=== PATIENT | female | born 1935 | race African-American/Black ===

== ENCOUNTER 2018-10-16 09:19 | Inpatient (IN) ==
[2018-10-16] MEDS ORDERED: Acetaminophen 325 MG Tablet PO ONE (09:47)
[2018-10-16] MEDS ORDERED: Sod Chloride 0.9% Inj 1,000 ML IV.SIG ONE (09:47)
[2018-10-16 10:12] LABS: Baso # (Auto) 0.1 th/mm3 (0.0-0.2); Baso % (Auto) 0.8 % (0.0-2.0); Eos # (Auto) 0.2 th/mm3 (0.0-0.4); Eos % (Auto) 2.5 % (0.0-4.0); Hematocrit 41.7 % (35.0-46.0); Lymph # (Auto) 2.9 th/mm3 (1.0-4.8); Lymph % (Auto) 40.4 % (9.0-44.0); Mean Corpuscular HGB Conc 33.6 % (32.0-36.0); Mean Corpuscular Hemoglobin 30.7 pg (27.0-34.0); Mean Corpuscular Volume 91.3 fL (80.0-100.0); Mean Platelet Volume 7.3 fL (7.0-11.0); Mono # (Auto) 0.5 th/mm3 (0.0-0.9); Mono % (Auto) 6.4 % (0.0-8.0); Neut # (Auto) 3.6 th/mm3 (1.8-7.7); Neut % (Auto) 49.9 % (16.0-70.0); Platelet Count 373 th/mm3 (150-450); Red Blood Count 4.56 mil/mm3 (4.00-5.30); Red Cell Distribution Width 14.3 % (11.6-17.2); White Blood Count 7.2 th/mm3 (4.0-11.0)
[2018-10-16 10:24] LABS: Calcium 8.9 mg/dL (8.5-10.1); Carbon Dioxide 30.8 meq/L (21.0-32.0); Potassium 3.9 meq/L (3.5-5.1)
--- NOTE | 2018-10-16 11:08 | ED ---
HPI General Chief Complaint: Headache Stated Complaint: Headache Time Seen by Provider: 10/16/18 09:39 Source: patient Mode of arrival: ambulatory Limitations: no limitations History of Present Illness HPI Narrative: 83-year-old female complains of headache. It started suddenly about an hour and a half prior to ER arrival in the region of the left neck into the back. Onset was sudden. It was severe and felt like an explosion in the patient's terms. She reports some blurred vision in the right eye ever since. No numbness tingling weakness. No loss of conscious. The patient reports occasional headaches from time to time however nothing like this. Pain has been constant and severe since. Patient denies any change in her normal routine or state of health that she thinks might be related to the headache. Related Data Home Medications Medication Instructions Recorded Confirmed amlodipine 5 mg PO DAILY 10/16/18 10/16/18 aspirin [Aspir-81] 81 mg PO DAILY 10/16/18 10/16/18 buspirone 7.5 mg PO BID 10/16/18 10/16/18 cholestyramine-aspartame 2 g PO BID 10/16/18 10/16/18 [Cholestyramine Light] hydrochlorothiazide 12.5 mg PO DAILY 10/16/18 10/16/18 losartan 50 mg PO DAILY 10/16/18 10/16/18 metformin 250 mg PO BID 10/16/18 10/16/18 omeprazole 20 mg PO DAILY 10/16/18 10/16/18 ranitidine HCl 150 mg PO DAILY 10/16/18 10/16/18 Allergies Allergy/AdvReac Type Severity Reaction Status Date / Time aspirin Allergy Severe UNCOATED Unverified 07/13/17 14:53 enalaprilat Allergy Severe GLOSSAL Unverified 07/13/17 14:53 SWELLING, DYSPNEA Review of Systems ROS: all other systems reviewed are negative Constitutional Denies fever(s) PMFSH Social History Social History Second Hand Smoke Exposure: No Smoking Status: Former smoker Tobacco Type: Cigarettes How Often Do You Have a Drink Containing Alcohol: Never Recent Travel in [facility] within the Last 8 Weeks: No Recent Out of Country Travel within the Last 8 Weeks: No Immunization History Tetanus Immunization: <5 Years Exam Narrative Exam Narrative: GENERAL: 83-year-old female pleasant well-nourished well- developed mild distress secondary to pain speaking full sentences SKIN: Focused skin assessment warm/dry. HEAD: Atraumatic. Normocephalic. EYES: Pupils equal and round. No scleral icterus. No injection or drainage. ENT: No nasal bleeding or discharge. Mucous membranes pink and moist. NECK: Trachea midline. No JVD. Supple. Normal range of motion. CARDIOVASCULAR: Regular rate and rhythm. No murmur appreciated. RESPIRATORY: No accessory muscle use. Clear to auscultation. Breath sounds equal bilaterally. GASTROINTESTINAL: Abdomen soft, non-tender, nondistended. Hepatic and splenic margins not palpable. MUSCULOSKELETAL: No obvious deformities. No clubbing. No cyanosis. No edema. No tenderness along the paracervical musculature. NEUROLOGICAL: Awake and alert. No obvious cranial nerve deficits. Motor grossly within normal limits. Normal speech. PSYCHIATRIC: Appropriate mood and affect; insight and judgment normal. Course Initial Documented Vital Signs Temperature 98.5 F 10/16/18 09:27 Pulse Rate 98 H 10/16/18 09:27 Respiratory Rate 17 10/16/18 09:27 Blood Pressure 178/92 H 10/16/18 09:27 Pulse Oximetry 100 10/16/18 09:27 Last Documented Vital Signs Temperature 98.5 F 10/16/18 09:27 Pulse Rate 87 10/16/18 12:16 Respiratory Rate 17 10/16/18 12:16 Blood Pressure 149/92 H 10/16/18 12:16 Pulse Oximetry 100 10/16/18 12:16 Critical Care Time Critical Care Time: Yes Total Critical Care Time: 40 Attestation: Aggregate critical care time was 40 minutes. Time to perform other separately billable procedures was not included in the critical care time. My time did not include minutes spent treating any other patients simultaneously or on activities that did not directly contribute to the patient's treatment. The services I provided to this patient were to treat and/or prevent clinically significant deterioration that could result in: Permanent deficit, intractable pain, intracranial hemorrhage I provided critical care services requiring my management, as noted below: Chart data review, documentation time, medication orders and management, vital sign assessments/reviewing monitor data, ordering and reviewing lab tests, ordering and interpreting/reviewing x-rays and diagnostic studies, care of the patient and discussion of the patient with the admitting physicians. Medical Decision Making MDM Narrative Medical decision making narrative: Patient arrives with thunderclap headache. Imaging is unremarkable including CTA. It seems as though the left MCA might have been acutely occluded based on interpretation of the head CT. The CTA shows patent intracranial vasculature in the neck vasculature is patent as well. Patient was evaluated by on-call neurologist and no TPA is indicated. There is of note no neurologic deficit. Evidently patient had some motor sensory disturbance in the left side yesterday. Admission for MR protocol evaluation recommended by neurology. Case discussed with Dr. Robledo for the hospitalist service. The patient at the time of my reassessment about 1.5 hours following admission had significant improvement with cephalgia having received Compazine Benadryl and Tylenol. Medical Screen Exam Complete: Yes Emergency Medical Condition: Yes Differential Diagnosis Differential Diagnosis: Aneurysm, subarachnoid hemorrhage, stroke, TIA, venous occlusion Lab Data Lab results reviewed: Yes I reviewed the patient's lab results. Result diagrams: 10/16/18 10:00 10/16/18 10:00 Lab Results 10/16/18 10/16/18 10/16/18 Range/Units 10:00 10:00 12:20 WBC 7.2 (4.0-11.0) th/mm3 RBC 4.56 (4.00-5.30) mil/mm3 Hgb 14.0 (11.6-15.3) gm/dL Hct 41.7 (35.0-46.0) % MCV 91.3 (80.0-100.0) fL MCH 30.7 (27.0-34.0) pg MCHC 33.6 (32.0-36.0) % RDW 14.3 (11.6-17.2) % Plt Count 373 (150-450) th/mm3 MPV 7.3 (7.0-11.0) fL Neut % (Auto) 49.9 (16.0-70.0) % Lymph % (Auto) 40.4 (9.0-44.0) % [place] % (Auto) 6.4 (0.0-8.0) % Eos % (Auto) 2.5 (0.0-4.0) % Baso % (Auto) 0.8 (0.0-2.0) % Neut # (Auto) 3.6 (1.8-7.7) th/mm3 Lymph # (Auto) 2.9 (1.0-4.8) th/mm3 [place] # (Auto) 0.5 (0.0-0.9) th/mm3 Eos # (Auto) 0.2 (0.0-0.4) th/mm3 Baso # (Auto) 0.1 (0.0-0.2) th/mm3 WBC Differential . Differential Comment Auto diff final Sodium 140 (136-145) meq/L Potassium 3.9 (3.5-5.1) meq/L Chloride 102 (98-107) meq/L Carbon Dioxide 30.8 (21.0-32.0) meq/L Anion Gap 7 (5-15) meq/L BUN 10 (7-18) mg/dL Creatinine 0.90 (0.50-1.00) mg/dL Estimated GFR 72 L (>89) mL/min Random Glucose 102 (74-106) mg/dL Calcium 8.9 (8.5-10.1) mg/dL Urine Color Yellow (Yellw/Straw) Urine Clarity Hazy H (Clear) Urine pH 8.0 (5.0-8.5) Ur Specific [place] 1.009 (1.002-1.035) Urine Protein Negative (Neg-Trace) mg/dL Urine Glucose (UA) Negative (Negative) mg/dL Urine Ketones Negative (Negative) mg/dL Urine Occult Blood Small H (Negative) Urine Nitrate Negative (Negative) Urine Bilirubin Negative (Negative) Urine Urobilinogen Less than 2 (Less than 2) mg/dL Ur Leukocyte Esterase Negative (Negative) Urine RBC 1 (0-3) /hpf Ur Squamous Epith Cells 1 (0-5) /hpf Amorphous Sediment Rare H (None) /hpf Urine Bacteria Rare H (None) /hpf Hyaline Casts 1 (0-3) /lpf Urine Mucus Few H (Occasional) /lpf Micro UA Comment Culture not ind Ur Microscopic Review Not Reportable Urine Culture Comments Culture not ind Imaging Data Attestation: I personally reviewed and interpreted this imaging study as follows : (No bleed, density in the left MCA of indeterminate significance) Radiologist's impression: Neck CTA 10/16/18 00:00 CONCLUSION: 1. Negative CTA Carotid. The right internal carotid artery and to a lesser extent the left internal carotid artery demonstrate a retropharyngeal course. Head CT 10/16/18 09:47 CONCLUSION: 1. Concern for acute thrombus identified within the left middle cerebral artery. . Head CTA 10/16/18 09:47 CONCLUSION: 1. No significant stenosis, occlusion or aneurysm. 2. Patent right posterior communicating artery. . Discharge Plan Discharge Disposition Patient Disposition: 30 Still Patient Physicians Team ED Provider: Maurilio Baez Primary Care Provider: Adama Stauffer Attending Provider: Cortney Robledo Other Providers: Mariano Collado ; Broderick Parmar Discharge Interventions Interventions: Vital Signs Last Done: 10/16/18 12:16 Status ED Status: Admitted Patient
--- NOTE | 2018-10-16 11:52 | CT ---
EXAM DATE: 10/16/2018 11:48 AM EST AGE/SEX: 83 years / Female INDICATIONS: Headache and blurred vision CLINICAL DATA: This is the patient's initial encounter. Patient reports that signs and symptoms have been present for 1 day and indicates a pain score of 10/10. MEDICAL/SURGICAL HISTORY: None. None. RADIATION DOSE: 36.84 CTDI (mGy) COMPARISON: [facility], CT BRAIN W AND W/O CONTRAST, 08/22/2015. . TECHNIQUE: CT of the head without contrast. Using automated exposure control and adjustment of the mA and/or kV according to patient size, radiation dose was kept as low as reasonably achievable to ob tain optimal diagnostic quality images. DICOM format image data is available electronically for revi ew and comparison. FINDINGS: Cerebrum: There is asymmetric enlargement and hyperdensity identified within the left middle cerebra l artery concerning for acute thrombus. There is slight loss of portillo-white differentiation identified within the insular cortex. The remainder of the cerebrum is unremarkable. Posterior Fossa: The cerebellum and brainstem are intact. The 4th ventricle is midline. The cerebe llopontine angle is unremarkable. Extracranial: The visualized portion of the orbits is intact. Skull: The calvaria is intact. No evidence of skull fracture. CONCLUSION: 1. Concern for acute thrombus identified within the left middle cerebral artery. . Electronically signed by: Claire Jackson MD 10/16/2018 11:51 AM EST
--- NOTE | 2018-10-16 12:27 | CT ---
EXAM DATE: 10/16/2018 12:23 PM EST AGE/SEX: 83 years / Female INDICATIONS: Headache and blurred vision CLINICAL DATA: This is the patient's initial encounter. Patient reports that signs and symptoms have been present for 1 day and indicates a pain score of 10/10. MEDICAL/SURGICAL HISTORY: None. None. RADIATION DOSE: 27.70 CTDI (mGy) COMPARISON: [facility], CT HEAD W/O CONTRAST, 10/16/2018. [facility], CT BRAIN W AND W/O CONTRAST, 08/22/2015 . . TECHNIQUE: Volumetric scanning was performed using a multi-row detector CT scanner during bolus infu sakshi of 74ML ml Omnipaque 350 (iohexol) nonionic water-soluble contrast as a cumulative dose for mul tiple exams. The data was post processed with a variety of visualization algorithms including full volume maximum intensity projection, multi-planar sliding thin slab reformation, curved planar reform ation, and surface rendering techniques. Using automated exposure control and adjustment of the mA a nd/or kV according to patient size, radiation dose was kept as low as reasonably achievable to obtain optimal diagnostic quality images. DICOM format image data is available electronically for review a nd comparison. FINDINGS: There is excellent visualization of the major intracranial arteries out to the second-order branch ve ssels. There is no evidence for aneurysm, vessel truncation or stenosis, and no evidence for vascula r malformation. There is a patent right posterior communicating artery. CONCLUSION: 1. No significant stenosis, occlusion or aneurysm. 2. Patent right posterior communicating artery. . Electronically signed by: Seun Stewart MD 10/16/2018 12:26 PM EST
--- NOTE | 2018-10-16 12:33 | CT ---
EXAM DATE: 10/16/2018 12:23 PM EST AGE/SEX: 83 years / Female INDICATIONS: Headache with blurred vision CLINICAL DATA: This is the patient's initial encounter. Patient reports that signs and symptoms have been present for 1 day and indicates a pain score of 10/10. MEDICAL/SURGICAL HISTORY: None. None. RADIATION DOSE: 27.70 CTDI (mGy) ; Combined studies COMPARISON: No prior exams available for comparison. TECHNIQUE: Volumetric scanning was performed using a multirow detector CT scanner during bolus infus ion of 74ML ml Omnipaque 350 (iohexol) nonionic water-soluble contrast as a cumulative dose for mult iple exams. The data was postprocessed with a variety of visualization algorithms including full-vo lume maximum intensity projection, multiplanar sliding thin-slab reformation, curved-planar reformati on, and surface-rendering techniques. Using automated exposure control and adjustment of the mA and/ or kV according to patient size, radiation dose was kept as low as reasonably achievable to obtain op timal diagnostic quality images. DICOM format image data is available electronically for review and comparison. FINDINGS: Aortic Arch: There is a three-vessel origin of the great vessels from the aorta. No evidence of ost ial narrowing Right Carotid: The common carotid artery is intact. The carotid bulb has a normal configuration wit hout ulceration or narrowing. The internal carotid artery lumen is smooth without stenosis. The ext ernal carotid artery is intact. Left Carotid: The common carotid artery is intact. The carotid bulb has a normal configuration with out ulceration or narrowing. The internal carotid artery lumen is smooth without stenosis. The exte rnal carotid artery is intact. Vertebrals: The vertebral arteries have a symmetric diameter. No stenotic lesions are seen. Percent stenosis is calculated using the diameter of the stenotic region over the diameter of the nor mal distal internal carotid artery. CONCLUSION: 1. Negative CTA Carotid. The right internal carotid artery and to a lesser extent the left internal carotid artery demonstrate a retropharyngeal course. Electronically signed by: Claire Jackson MD 10/16/2018 12:31 PM EST
[2018-10-16 12:35] LABS: Amorphous Sediment,Urine Rare /hpf; Bacteria,Urine Rare /hpf; Bilirubin,Urine Negative (Negative); Clarity,Urine Hazy (Clear); Color,Urine Yellow (Yellw/Straw); Glucose,Urine (UA) Negative (Negative); Hyaline Casts,Urine 1 /lpf (0-3); Leukocyte Esterase,Urine Negative (Negative); Mucus,Urine Few /lpf (Occasional); Nitrite,Urine Negative (Negative); Specific Gravity,Urine 1.009 (1.002-1.035); Squamous Epithelial Cell,Urine 1 /hpf (0-5)
[2018-10-16] MEDS ORDERED: Dextrose 50% in Water 50 ML Vial IV.PUSH PRN (13:12)
--- NOTE | 2018-10-16 13:12 | P.CONNEU ---
History of Present Illness Service: Neurology Primary Care Provider: Adama Stauffer MD Chief Complaint: stroke alert History of Present Illness: 83 y/o aaf presents to ER for severe headache. began abruptly this am. affected her left neck as well. no loc, no syncope. no photo/phonophobia. since that time she has felt a numbness in her left arm which has improved and only affecting her fingers now. she did have changes in her gait yesterday that are new and felt weak. she rested yesterday hoping the symptoms would improve. 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 no hx of stroke/tia. Review of Systems All other systems reviewed negative except as stated in HPI PMFSH - History History Provided By: Patient - Tobacco History Second Hand Smoke Exposure: No Tobacco Use In Past 30 Days: No Smoking Status: Former smoker Tobacco Type: Cigarettes - Alcohol History How Often Do You Have a Drink Containing Alcohol: Never - Travel History Recent Travel in the [facility] Within the Last 8 Weeks: No Recent Travel Out of the Country Within the Last 8 Weeks: No - Immunization History Tetanus Immunization: <5 Years Medications and Allergies Active Medications: Active Medications Sodium Chloride (Ns Flush) 2 ml IV.FLUSH PRN PRN PRN Reason: FLUSH AFTER USING IV ACCESS Allergies Allergy/AdvReac Type Severity Reaction Status Date / Time aspirin Allergy Severe UNCOATED Unverified 07/13/17 14:53 enalaprilat Allergy Severe GLOSSAL Unverified 07/13/17 14:53 SWELLING, DYSPNEA Exam Vital signs: Vital Signs 10/16/18 09:27 10/16/18 12:16 Temperature 98.5 F Pulse Rate 98 H 87 Respiratory Rate 17 17 Blood Pressure 178/92 H 149/92 H Pulse Oximetry 100 100 Intake & Output 10/15/18 10/16/18 10/16/18 18:59 06:59 18:59 Intake Total 1000 / 1000 Balance 1000 / 1000 Weight 108.862 kg Intake: IV 1000 / 1000 NS Inj 1,000 ML @ Wide Open IV. 1000 / 1000 SIG BOLUS ONE Rx#:[id number] Narrative: GENERAL: in NAD, SKIN: Warm and dry. HEAD: Atraumatic. Normocephalic. EYES: Pupils equal and round. No scleral icterus. ENT: No nasal bleeding or discharge. Mucous membranes pink and moist. NECK: Trachea midline. No JVD. CARDIOVASCULAR: Regular rate and rhythm. RESPIRATORY: No accessory muscle use. GASTROINTESTINAL: Abdomen soft, non-tender, nondistended. MUSCULOSKELETAL: Extremities without clubbing, cyanosis, or edema. No obvious deformities. NEUROLOGICAL: Awake and alert. No aphasia, fluent articulate, ox 3, articulate, follows, +tenderness in rt > left protestant region, No facial asymmetry, OU 3-2mm , eomi, VFF, No drift, Motor grossly within normal limits. Five out of 5 muscle strength in the arms and legs. reduced pin in left fingers, no neglect, Tone normal in all 4 limbs, , msr 1-2+ sym, no clonus, planterflexor, gait not assessed 2/2 fall risk PSYCHIATRIC: Appropriate mood and affect; insight and judgment normal. - Constitutional no acute distress - Routine HEENT Exam Head: Present: normocephalic Eye: Present: EOMI Results - Labs CBC & Chem 7: 10/16/18 10:00 10/16/18 10:00 Labs: Laboratory Results - last 24 hr 10/16/18 10/16/18 10/16/18 10:00 10:00 12:20 WBC 7.2 RBC 4.56 Hgb 14.0 Hct 41.7 MCV 91.3 MCH 30.7 MCHC 33.6 RDW 14.3 Plt Count 373 MPV 7.3 Neut % (Auto) 49.9 Lymph % (Auto) 40.4 [place] % (Auto) 6.4 Eos % (Auto) 2.5 Baso % (Auto) 0.8 Neut # (Auto) 3.6 Lymph # (Auto) 2.9 [place] # (Auto) 0.5 Eos # (Auto) 0.2 Baso # (Auto) 0.1 WBC Differential . Differential Comment Auto diff final Sodium 140 Potassium 3.9 Chloride 102 Carbon Dioxide 30.8 Anion Gap 7 BUN 10 Creatinine 0.90 Estimated GFR 72 L Random Glucose 102 Calcium 8.9 Urine Color Yellow Urine Clarity Hazy H Urine pH 8.0 Ur Specific [place] 1.009 Urine Protein Negative Urine Glucose (UA) Negative Urine Ketones Negative Urine Occult Blood Small H Urine Nitrate Negative Urine Bilirubin Negative Urine Urobilinogen Less than 2 Ur Leukocyte Esterase Negative Urine RBC 1 Ur Squamous Epith Cells 1 Amorphous Sediment Rare H Urine Bacteria Rare H Hyaline Casts 1 Urine Mucus Few H Micro UA Comment Culture not ind Ur Microscopic Review Not Reportable Urine Culture Comments Culture not ind - Imaging Impressions Neck CTA 10/16/18 00:00 CONCLUSION: 1. Negative CTA Carotid. The right internal carotid artery and to a lesser extent the left internal carotid artery demonstrate a retropharyngeal course. Head CT 10/16/18 09:47 CONCLUSION: 1. Concern for acute thrombus identified within the left middle cerebral artery. . Head CTA 10/16/18 09:47 CONCLUSION: 1. No significant stenosis, occlusion or aneurysm. 2. Patent right posterior communicating artery. . 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 cta's negative r/o gca- check esr/crp possible lower medullary brainstem stroke that could cause a severe headache, scalp paresthesias, with ipsilateral numbness recs mri/mra brain esr/crp plavix iv steroids for now echo lipids/hba1c follow exam
[2018-10-16] MEDS: Heparin - SQ 10,000 UNITS/ML Vial SQ SCH ×2 (13:27→21:15)
[2018-10-16] MEDS: Sod Chloride 0.9% Inj 1,000 ML IV.CONT SCH (13:28)
[2018-10-16] MEDS: MethylPREDNISolone Sod Succinate Inj 125 MG/2 ML Vial IV.PUSH SCH ×2 (13:28→21:15)
--- NOTE | 2018-10-16 14:25 | P.HPIM ---
History of Present Illness Primary Care Physician: Adama Stauffer MD Chief Complaint: Headache History of Present Illness: 83-year-old female with a history of diabetes mellitus type 2, hypertension, hyperlipidemia who stented to the emergency room due to sudden onset of severe left-sided headache radiating down towards the posterior part of her head neck and down to her left arm. This is associated with some blurred vision with no associated photo sensitivity. 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 Of note, she started having some generalized weakness yesterday with associated dizziness that affected her gait. When she developed sudden onset of headache, she came into the emergency room further evaluation. She denies a history of stroke or TIAs in the past. She denies any associated trouble swallowing or any difficulty with her speech. She denies any associated chest pain, palpitations, nor any shortness of breath. Diagnosis (1) Acute lacunar stroke: (2) HTN (hypertension): (3) Headache: Inpatient Certification Inpatient Certification: I certify that the inpatient services were ordered in accordance with Medicare regulations governing the order. This includes certification that hospital inpatient services are reasonable and necessary and in the case of services not specified as inpatient-only under 42 CFR 419.22(n), that they are appropriately provided as inpatient services in accordance to with the 2-midnight benchmark under 43 CFR 412.3(e) Estimated Total Length of Stay (Days): 2 Plans for Post Hospital Care: Home Review of Systems Review of Systems: all other systems reviewed are negative [facility] Medical History Medical History Diabetes mellitus (Chronic) Hyperlipidemia (Chronic) Hypertension (Chronic) Lung cancer (Inactive) Renal cancer (Inactive) Surgical History Surgical History History of hysterectomy (Acute) Status post pneumonectomy (Acute) Family History Family History Mother Hypertension Sister Breast cancer Social History Social History Second Hand Smoke Exposure: No Smoking Status: Former smoker Tobacco Type: Cigarettes How Often Do You Have a Drink Containing Alcohol: Never Recent Travel in [place] within the Last 8 Weeks: No Recent Out of Country Travel within the Last 8 Weeks: No Immunization History Tetanus Immunization: <5 Years Medications and Allergies Allergies Allergy/AdvReac Type Severity Reaction Status Date / Time aspirin Allergy Severe UNCOATED Unverified 07/13/17 14:53 enalaprilat Allergy Severe GLOSSAL Unverified 07/13/17 14:53 SWELLING, DYSPNEA Home Medications Medication Instructions Recorded Confirmed Type amlodipine 5 mg PO DAILY 10/16/18 10/16/18 History aspirin [Aspir-81] 81 mg PO DAILY 10/16/18 10/16/18 History buspirone 7.5 mg PO BID 10/16/18 10/16/18 History cholestyramine-aspartame 2 g PO BID 10/16/18 10/16/18 History [Cholestyramine Light] hydrochlorothiazide 12.5 mg PO DAILY 10/16/18 10/16/18 History losartan 50 mg PO DAILY 10/16/18 10/16/18 History metformin 250 mg PO BID 10/16/18 10/16/18 History omeprazole 20 mg PO DAILY 10/16/18 10/16/18 History ranitidine HCl 150 mg PO DAILY 10/16/18 10/16/18 History Active Medications: Active Medications Clopidogrel Bisulfate (Plavix) 75 mg PO DAILY [facility] Last Admin: 10/16/18 13:28 Dose: 75 mg Dextrose (D50w Vial) 50 ml IV.PUSH UNSCH PRN PRN Reason: PER HYPOGLYCEMIA PROTOCOL Glucagon (Glucagon Inj) 1 mg OTHER UNSCH PRN PRN Reason: for Hypoglycemia Protocol Heparin Sodium (Porcine) (Heparin Inj) 5,000 units SQ Q12HR [facility] Last Admin: 10/16/18 13:27 Dose: 5,000 units Sodium Chloride (Ns Inj) 1,000 mls @ 70 mls/hr IV.CONT .[id number] [facility] Last Admin: 10/16/18 13:28 Dose: 70 mls/hr Insulin Aspart (Novolog Insulin Correctional Sugar Inj) 0 unit SQ ACHS [facility]; Protocol Methylprednisolone Sodium Succinate (Solumedrol Inj) 125 mg IV.PUSH Q12HR [facility] Stop: 10/18/18 23:59 Last Admin: 10/16/18 13:28 Dose: 125 mg Pravastatin Sodium (Pravachol) 40 mg PO HS [facility] Sodium Chloride (Ns Flush) 2 ml IV.FLUSH PRN PRN PRN Reason: FLUSH AFTER USING IV ACCESS Sodium Chloride (Ns Flush) 2 ml IV.FLUSH BID [facility] Sodium Chloride (Ns Flush) 2 ml IV.FLUSH PRN PRN PRN Reason: FLUSH AFTER USING IV ACCESS Physical Exam Vital signs: Last Vital Signs Temp 98.5 F 10/16/18 09:27 Pulse 87 10/16/18 12:16 Resp 17 10/16/18 12:16 BP 149/92 H 10/16/18 12:16 Pulse Ox 100 10/16/18 12:16 Intake & Output 10/14/18 10/15/18 10/16/18 10/17/18 06:59 06:59 06:59 06:59 Intake Total 1000 / 1000 Balance 1000 / 1000 Weight 108.862 kg Narrative: GENERAL: Well-nourished well-developed -F[place]ish female in no acute distress SKIN: Warm and dry. HEAD: Atraumatic. Normocephalic. EYES: Pupils equal and round. No scleral icterus. No injection or drainage. ENT: No nasal bleeding or discharge. Mucous membranes pink and moist. NECK: Trachea midline. No JVD. CARDIOVASCULAR: Regular rate and rhythm. RESPIRATORY: No accessory muscle use. Clear to auscultation. Breath sounds equal bilaterally. GASTROINTESTINAL: Abdomen soft, non-tender, nondistended. Hepatic and splenic margins not palpable. Normoactive bowel sounds MUSCULOSKELETAL: Extremities without clubbing, cyanosis, or edema. No obvious deformities. NEUROLOGICAL: Awake and alert to person place time situation. No obvious cranial nerve deficits. Motor grossly within normal limits. Five out of 5 muscle strength in the legs. 5 out of 5 motor strength in the right upper extremitiesslight diminished zoology teacher strength of the left fingers and hand normal speech. PSYCHIATRIC: Appropriate mood and affect; insight and judgment normal. Results Labs CBC & Chem 7: 10/16/18 10:00 10/16/18 10:00 Imaging Impressions Neck CTA 10/16/18 00:00 CONCLUSION: 1. Negative CTA Carotid. The right internal carotid artery and to a lesser extent the left internal carotid artery demonstrate a retropharyngeal course. Head CT 10/16/18 09:47 CONCLUSION: 1. Concern for acute thrombus identified within the left middle cerebral artery. . Head CTA 10/16/18 09:47 CONCLUSION: 1. No significant stenosis, occlusion or aneurysm. 2. Patent right posterior communicating artery. . Caprini VTE Risk Assessment Caprini VTE Risk Assessment: Moderate/High Risk (score >= 2) Caprini Risk Assessment Model: Point Value = 1 Point Value = 2 Point Value = 3 Point Value = 5 Age 41-60 Minor surgery BMI > 25 kg/m2 Swollen legs Varicose veins or History of unexplained or recurrent spontaneous Oral contraceptives or hormone replacement Sepsis (< 1 month) Serious lung disease, including pneumonia (< 1 month) Abnormal pulmonary function Acute myocardial infarction Congestive heart failure (< 1 month) History of inflammatory bowel disease Medical patient at bed rest Age 61-74 Arthroscopic surgery Major open surgery (> 45 min) Laparoscopic surgery (> 45 min) Malignancy Confined to bed (> 72 hours) Immobilizing plaster cast Central venous access Age >= 75 History of VTE Family history of VTE Factor V Leiden Prothrombin 52801L Lupus anticoagulant Anticardiolipin antibodies Elevated serum homocysteine Heparin-induced thrombocytopenia Other congenital or acquired thrombophilia Stroke (< 1 month) Elective arthroplasty Hip, pelvis, or leg fracture Acute spinal cord injury (< 1 month) Prophylaxis Regimen: Total Risk Factor Score Risk Level Prophylaxis Regimen 0-1 Low Early ambulation 2 Moderate Order ONE of the following: *Sequential Compression Device (SCD) *Heparin 5000 units SQ BID 3-4 Higher Order ONE of the following medications: *Heparin 5000 units SQ TID *Enoxaparin/Lovenox 40 mg SQ daily (WT < 150 kg, CrCl > 30 mL/min) *Enoxaparin/Lovenox 30 mg SQ daily (WT < 150 kg, CrCl > 10-29 mL/min) *Enoxaparin/Lovenox 30 mg SQ BID (WT < 150 kg, CrCl > 30 mL/min) AND/OR *Sequential Compression Device (SCD) 5 or more Highest Order ONE of the following medications: *Heparin 5000 units SQ TID (Preferred with Epidurals) *Enoxaparin/Lovenox 40 mg SQ daily (WT < 150 kg, CrCl > 30 mL/min) *Enoxaparin/Lovenox 30 mg SQ daily (WT < 150 kg, CrCl > 10-29 mL/min) *Enoxaparin/Lovenox 30 mg SQ BID (WT < 150 kg, CrCl > 30 mL/min) AND *Sequential Compression Device (SCD) Assessment and Plan (1) Acute lacunar stroke: Code(s): I63.9 - Cerebral infarction, unspecified Status: Acute (2) HTN (hypertension): Code(s): I10 - Essential (primary) hypertension Status: Chronic (3) Headache: Code(s): R51 - Headache Status: Acute Plan 83-year-old female presents to the emergency room acute onset of headache with left arm numbness and decreased handgrip with associated blurry vision CVA versus TIA versus cephalgiaPlavix have been initiated by neurology. Patient in the past has not tolerated aspirin due to spitting up blood. MRI and MRA of the brain currently pending. 2D echo to be obtained Appreciate neurology recommendation and temporal arteritis needs to be ruled out , ERCP CRP currently pending, IV steroids was initiated by neurology. Continue close neurological checks Consult OT and PT Diabetes mellitus type 2 -ADA diet, sliding scale insulin, hold metformin Hypertension history, hold antihypertensives for permissive blood pressure until CVA is ruled out. Hyperlipidemia -check fasting lipid profile and start statin. DVT prophylaxisheparin _ (1) Headache Qualifiers: Headache chronicity pattern: Headache type: Intractability: (2) HTN (hypertension) Qualifiers: Hypertension type:
[2018-10-16 14:26] LABS: Chol/HDL Ratio 2.53 Ratio; HDL Cholesterol 64.4 mg/dL (40.0-60.0); Thyroid Stimulating Hormone 1.25 uIU/mL (0.358-3.740)
--- NOTE | 2018-10-16 16:18 | MR ---
EXAM DATE: 10/16/2018 4:13 PM EST AGE/SEX: 83 years / Female INDICATIONS: Cephalgia. Left side weakness. CLINICAL DATA: This is the patient's initial encounter. Patient reports that signs and symptoms have been present for 1 day and indicates a pain score of 0/10. MEDICAL/SURGICAL HISTORY: Carcinoma, lung. Diabetes mellitus type II. Hypertension. Hysterect marisol. Lobectomy. Nephrectomy, right. Bilateral knee replacement. COMPARISON: [facility] [place], MR HEAD W/O CONTRAST, 10/16/2018. [facility] [place], CT HEAD W/O CONTRAST, 10/16/2018. [facility] [place] , CTA HEAD W CONTRAST W 3D, 10/16/2018. . TECHNIQUE: 3D [id number] MRA was performed. Source images, multiplanar STS MIP, and 3D volum e MIP reconstructions were reviewed. FINDINGS: There is excellent visualization of the major intracranial arteries out to the second-order branch ve ssels. There is no evidence for aneurysm, vessel truncation or stenosis, and no evidence for vascula r malformation. Flow is seen in the right PCOM. CONCLUSION: 1. Negative MRA of the [place]. The left M1 segment is widely patent with intact flow. Electronically signed by: Carter Gerber MD 10/16/2018 4:17 PM EST
[2018-10-16] MEDS ORDERED: Gadobutrol PF 10 MMOL/10 ML Vial (for RAD) IV.SIG ONE (16:20)
--- NOTE | 2018-10-16 16:20 | MR ---
EXAM DATE: 10/16/2018 4:16 PM EST AGE/SEX: 83 years / Female INDICATIONS: Cephalgia. Left side weakness. CLINICAL DATA: This is the patient's initial encounter. Patient reports that signs and symptoms have been present for 1 day and indicates a pain score of 0/10. MEDICAL/SURGICAL HISTORY: Carcinoma, lung. Diabetes mellitus type II. Hypertension. Hysterect marisol. Lobectomy. Nephrectomy, right. Bilateral knee replacement. COMPARISON: [facility] [place], MRA HEAD W/O CONTRAST, 10/16/2018. [facility] [place], CTA HEAD W CONTRAST W 3D, 10/16/2018. . TECHNIQUE: Multiplanar, multisequence examination of the brain was performed without contrast. FINDINGS: Cerebrum: The ventricles are normal for age. No evidence of midline shift, mass lesion, hemorrhage or acute infarction. No extraaxial fluid collections are seen. The pituitary gland and suprasellar cistern are normal in configuration. Scattered old tiny lacunar infarcts are noted within the bilater al basal ganglia. White Matter: No significant signal abnormalities are seen in the white matter. Posterior Fossa: The cerebellum is intact. Old lacunar infarct is noted within the left mirza. The 4th ventricle is midline. The cerebellopontine angle is unremarkable. The cerebellar tonsils are vidya l in position. Diffusion Imaging: No focal areas of restricted diffusion are seen. No evidence of acute infarction . Extracranial: The visualized portions of the orbits and paranasal sinuses are unremarkable. CONCLUSION: 1. No acute infarct, acute hemorrhage, midline shift or extra-axial fluid collections. 2. Scattered old tiny lacunar infarcts within the bilateral basal ganglia and within the left mirza Electronically signed by: Seun Stewart MD 10/16/2018 4:19 PM EST
--- NOTE | 2018-10-16 16:56 | MR ---
EXAM DATE: 10/16/2018 4:46 PM EST AGE/SEX: 83 years / Female INDICATIONS: Myelopathy. Left side weakness. CLINICAL DATA: This is the patient's initial encounter. Patient reports that signs and symptoms have been present for 1 day and indicates a pain score of 0/10. MEDICAL/SURGICAL HISTORY: Carcinoma, lung. Hypertension. Diabetes mellitus type II. Nephrecto my, right. Lobectomy. Hysterectomy. Bilateral knee replacement. COMPARISON: [facility], CTA NECK W CONTRAST W 3D, 10/16/2018. . TECHNIQUE: Multiplanar, multisequence MRI examination of the cervical spine was performed without an d with 10cc ml Gadavist (gadobutrol) contrast as a single exam dose. FINDINGS: Vertebrae: Normal vertebral body height. Homogeneous marrow signal. Alignment: Normal. Cord: Normal configuration and signal. Post Fossa: The cerebellar tonsils are normal in position. Post Contrast: No abnormal areas of enhancement are seen in the cervical cord or paraspinal soft tis sues. The right carotid artery courses to the midline at the level of C4 and C5. C2-C3: The thecal sac has a normal configuration. There is no evidence of disc herniation or spinal canal stenosis. The neural foramina are patent bilaterally. C3-C4: No evidence of disc bulge or protrusion. Asymmetric uncovertebral joint hypertrophy on the le ft side causes some narrowing of the orifice of the neural foramen. The right neural foramen is paten t. C4-C5: The thecal sac has a normal configuration. There is no evidence of disc herniation or spinal canal stenosis. The neural foramina are patent bilaterally. C5-C6: Mild broad-based bulging of the disc flattens the ventral margin of the thecal sac. Neural fo ramen are patent bilaterally. C6-C7: Mild broad-based bulging of the disc. There is an epidural impression on the left side near t he orifice of the neural foramen having appearance characteristic of the disc/osteophyte complex caus ing moderate neural foraminal stenosis. The neural foramen on the right is patent. C7-T1: No epidural impressions seen. CONCLUSION: 1. Uncovertebral joint hypertrophy on the left side at C3-4 and disc osteophyte complex on the left side at C6-7 cause asymmetric narrowing of the neural foramina at these levels. Probable impingement on the ventral nerve roots at both levels. 2. No signal abnormalities in the marrow of the cervical vertebral bodies. Electronically signed by: Carter Gerber MD 10/16/2018 4:55 PM EST
[2018-10-16] MEDS: Insulin NovoLOG Aspart Correctional Sugar Inj SQ SCH ×2 (17:27→21:20)
[2018-10-17] MEDS: Cholestyramine Light 4 GM Packet PO SCH ×3 (03:21→21:27)
[2018-10-17] MEDS: Sod Chloride 0.9% Inj 1,000 ML IV.CONT SCH (06:22)
[2018-10-17] MEDS: Insulin NovoLOG Aspart Correctional Sugar Inj SQ SCH ×4 (07:59→21:30)
[2018-10-17] MEDS: Heparin - SQ 10,000 UNITS/ML Vial SQ SCH ×2 (08:00→21:31)
[2018-10-17] MEDS: Famotidine 20 MG Tablet PO SCH (08:00)
[2018-10-17] MEDS: Pantoprazole Sodium 20 MG DR Tablet PO SCH (08:00)
[2018-10-17] MEDS: MethylPREDNISolone Sod Succinate Inj 125 MG/2 ML Vial IV.PUSH SCH (08:01)
--- NOTE | 2018-10-17 09:53 | P.PNNEU ---
Subjective Subjective Comments: No cp, no dyspnea, no focal weakness, no vision loss Feels a lot better no numbness very mild headache this morning that resolved scalp feels better no paresthesias Active Medications: Active Medications Buspirone HCl (Buspar) 7.5 mg PO BID [facility] Last Admin: 10/17/18 08:00 Dose: 7.5 mg Cholestyramine Resin (Questran Light 4 Gm Pkt) 2 gm PO BID [facility] Last Admin: 10/17/18 08:01 Dose: Not Given Clopidogrel Bisulfate (Plavix) 75 mg PO DAILY [facility] Last Admin: 10/17/18 08:00 Dose: 75 mg Dextrose (D50w Vial) 50 ml IV.PUSH UNSCH PRN PRN Reason: PER HYPOGLYCEMIA PROTOCOL Famotidine (Pepcid) 20 mg PO DAILY [facility] Last Admin: 10/17/18 08:00 Dose: 20 mg Glucagon (Glucagon Inj) 1 mg OTHER UNSCH PRN PRN Reason: for Hypoglycemia Protocol Heparin Sodium (Porcine) (Heparin Inj) 5,000 units SQ Q12HR [facility] Last Admin: 10/17/18 08:00 Dose: 5,000 units Hydrochlorothiazide (Microzide) 12.5 mg PO DAILY [facility] Last Admin: 10/17/18 08:00 Dose: 12.5 mg Sodium Chloride (Ns Inj) 1,000 mls @ 70 mls/hr IV.CONT .[id number] [facility] Last Infusion: 10/17/18 06:22 Dose: 70 mls/hr Insulin Aspart (Novolog Insulin Correctional Sugar Inj) 0 unit SQ ACHS [facility]; Protocol Last Admin: 10/17/18 07:59 Dose: Not Given Methylprednisolone Sodium Succinate (Solumedrol Inj) 125 mg IV.PUSH Q12HR [facility] Stop: 10/18/18 23:59 Last Admin: 10/17/18 08:01 Dose: 125 mg Miscellaneous (Pill Splitter) 1 each OTHER UNSCH PRN PRN Reason: PILL SPLITTER Pantoprazole Sodium (Protonix) 20 mg PO DAILY [facility] Last Admin: 10/17/18 08:00 Dose: 20 mg Pravastatin Sodium (Pravachol) 40 mg PO HS [facility] Last Admin: 10/16/18 21:15 Dose: 40 mg Sodium Chloride (Ns Flush) 2 ml IV.FLUSH PRN PRN PRN Reason: FLUSH AFTER USING IV ACCESS Sodium Chloride (Ns Flush) 2 ml IV.FLUSH BID [facility] Last Admin: 10/17/18 08:00 Dose: Not Given Sodium Chloride (Ns Flush) 2 ml IV.FLUSH PRN PRN PRN Reason: FLUSH AFTER USING IV ACCESS Allergies/Adverse Reactions: Allergies Allergy/AdvReac Type Severity Reaction Status Date / Time aspirin Allergy Severe UNCOATED Unverified 07/13/17 14:53 enalaprilat Allergy Severe GLOSSAL Unverified 07/13/17 14:53 SWELLING, DYSPNEA Review of Systems All other systems reviewed negative except as stated in HPI Physical Exam Vital signs: Vital Signs 10/16/18 12:16 10/16/18 14:31 10/16/18 15:30 Temperature Pulse Rate 87 73 Respiratory Rate 17 18 Blood Pressure 149/92 H 163/93 H Pulse Oximetry 100 100 10/16/18 17:02 10/16/18 19:59 10/16/18 20:00 Temperature 97.5 F L 98.2 F Pulse Rate 80 80 93 H Respiratory Rate 16 18 Blood Pressure 152/92 H 135/82 Pulse Oximetry 99 94 L 10/17/18 00:00 10/17/18 00:07 10/17/18 04:00 Temperature 98.1 F 98.2 F Pulse Rate 87 72 74 Respiratory Rate 18 18 Blood Pressure 132/79 136/78 Pulse Oximetry 95 93 L 10/17/18 05:36 10/17/18 07:00 10/17/18 08:00 Temperature 98.1 F Pulse Rate 74 83 Respiratory Rate 12 20 Blood Pressure 132/79 Pulse Oximetry 97 Intake & Output 10/16/18 10/17/18 10/17/18 18:59 06:59 18:59 Intake Total 1540 / 1540 Balance 1540 / 1540 Weight 108.862 kg Intake: IV 1000 / 1000 NS Inj 1,000 ML @ Wide Open IV. 1000 / 1000 SIG BOLUS ONE Rx#:[id number] Oral 540 / 540 Other: # Voids 1 2 Date of Last Bowel Movement 10/16/18 10/16/18 # Bowel Movements 0 Narrative: GENERAL: in NAD, sitting up in chair looks well SKIN: Warm and dry. HEAD: Atraumatic. Normocephalic. EYES: Pupils equal and round. No scleral icterus. ENT: No nasal bleeding or discharge. NECK: Trachea midline. No JVD. CARDIOVASCULAR: Regular rate and rhythm. RESPIRATORY: No accessory muscle use. GASTROINTESTINAL: Abdomen soft, non-tender, nondistended. MUSCULOSKELETAL: No obvious deformities. NEUROLOGICAL: Awake and alert. No aphasia, fluent articulate, ox 3, articulate, follows, no tenderness neck supple visual rseendiz full no facial asymmetry no focal weakness gait not assessed secondary to fall risk PSYCHIATRIC: Appropriate mood and affect; insight and judgment normal. - Constitutional no acute distress - Routine HEENT Exam Head: Present: normocephalic Eye: Present: EOMI Objective Laboratory Results - last 24 hr 10/16/18 10/16/18 10/16/18 10:00 10:00 10:00 WBC 7.2 RBC 4.56 Hgb 14.0 Hct 41.7 MCV 91.3 MCH 30.7 MCHC 33.6 RDW 14.3 Plt Count 373 MPV 7.3 Neut % (Auto) 49.9 Lymph % (Auto) 40.4 [place] % (Auto) 6.4 Eos % (Auto) 2.5 Baso % (Auto) 0.8 Neut # (Auto) 3.6 Lymph # (Auto) 2.9 [place] # (Auto) 0.5 Eos # (Auto) 0.2 Baso # (Auto) 0.1 WBC Differential . Differential Comment Auto diff final ESR Sodium 140 Potassium 3.9 Chloride 102 Carbon Dioxide 30.8 Anion Gap 7 BUN 10 Creatinine 0.90 Estimated GFR 72 L POC Glucose Random Glucose 102 Calcium 8.9 C-Reactive Protein 1.00 H Triglycerides 133 Cholesterol 163 LDL Cholesterol, Calc 72 HDL Cholesterol 64.4 H Cholesterol/HDL Ratio 2.53 Vitamin B12 869 TSH 1.250 Urine Color Urine Clarity Urine pH Ur Specific [place] Urine Protein Urine Glucose (UA) Urine Ketones Urine Occult Blood Urine Nitrate Urine Bilirubin Urine Urobilinogen Ur Leukocyte Esterase Urine RBC Ur Squamous Epith Cells Amorphous Sediment Urine Bacteria Hyaline Casts Urine Mucus Micro UA Comment Ur Microscopic Review Urine Culture Comments 10/16/18 10/16/18 10/16/18 10:00 10:00 12:20 WBC RBC Hgb Hct MCV MCH MCHC RDW Plt Count MPV Neut % (Auto) Lymph % (Auto) [place] % (Auto) Eos % (Auto) Baso % (Auto) Neut # (Auto) Lymph # (Auto) [place] # (Auto) Eos # (Auto) Baso # (Auto) WBC Differential Differential Comment ESR 8 Sodium Potassium Chloride Carbon Dioxide Anion Gap BUN Creatinine Estimated GFR POC Glucose Random Glucose Calcium C-Reactive Protein Triglycerides Cholesterol LDL Cholesterol, Calc HDL Cholesterol Cholesterol/HDL Ratio Vitamin B12 TSH Cancelled Urine Color Yellow Urine Clarity Hazy H Urine pH 8.0 Ur Specific [place] 1.009 Urine Protein Negative Urine Glucose (UA) Negative Urine Ketones Negative Urine Occult Blood Small H Urine Nitrate Negative Urine Bilirubin Negative Urine Urobilinogen Less than 2 Ur Leukocyte Esterase Negative Urine RBC 1 Ur Squamous Epith Cells 1 Amorphous Sediment Rare H Urine Bacteria Rare H Hyaline Casts 1 Urine Mucus Few H Micro UA Comment Culture not ind Ur Microscopic Review Not Reportable Urine Culture Comments Culture not ind 10/16/18 10/16/18 10/17/18 17:18 20:18 07:10 WBC RBC Hgb Hct MCV MCH MCHC RDW Plt Count MPV Neut % (Auto) Lymph % (Auto) [place] % (Auto) Eos % (Auto) Baso % (Auto) Neut # (Auto) Lymph # (Auto) [place] # (Auto) Eos # (Auto) Baso # (Auto) WBC Differential Differential Comment ESR Sodium Potassium Chloride Carbon Dioxide Anion Gap BUN Creatinine Estimated GFR POC Glucose 114 H 179 H 125 H Random Glucose Calcium C-Reactive Protein Triglycerides Cholesterol LDL Cholesterol, Calc HDL Cholesterol Cholesterol/HDL Ratio Vitamin B12 TSH Urine Color Urine Clarity Urine pH Ur Specific [place] Urine Protein Urine Glucose (UA) Urine Ketones Urine Occult Blood Urine Nitrate Urine Bilirubin Urine Urobilinogen Ur Leukocyte Esterase Urine RBC Ur Squamous Epith Cells Amorphous Sediment Urine Bacteria Hyaline Casts Urine Mucus Micro UA Comment Ur Microscopic Review Urine Culture Comments Review/Management - Diagnosis (1) HTN (hypertension) Code(s): I10 - Essential (primary) hypertension Status: Chronic Current Visit: Yes (2) Headache Code(s): R51 - Headache Status: Acute Current Visit: Yes (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 Possibility of TIA versus mild inflammatory state cta's negative r/o gca- check esr/crp; ESR normal CRP minimally elevated MRI brain negative for acute stroke MRA brain patent vasculature MRI C-spine spondylosis cord normal recs Doing better Possibility of TIA and Plavix; discontinue aspirin 6-12 weeks prednisone times 1 week Discharge planning from neurologic neurology standpoint Behavioral modification and risk factor reduction. Weight loss, blood pressure control, blood sugar control, lipid control. Exercise
--- NOTE | 2018-10-17 11:46 | P.PNIM ---
Subjective Interval history: Reports headache has resolved. Reports no numbness nor any numbness at this time. Feels pretty good. No neck pain. Physical Exam Vital signs: Last Vital Signs Temp 98.1 F 10/17/18 08:00 Pulse 107 H 10/17/18 08:00 Resp 20 10/17/18 08:00 BP 132/79 10/17/18 08:00 Pulse Ox 97 10/17/18 08:00 Intake & Output 10/15/18 10/16/18 10/17/18 10/18/18 06:59 06:59 06:59 06:59 Intake Total 1540 / 1540 Balance 1540 / 1540 Weight 108.862 kg Narrative: GENERAL: This is a well-nourished, well-developed patient, in no apparent distress. CARDIOVASCULAR: Regular rate and rhythm RESPIRATORY: Clear to auscultation. Breath sounds equal bilaterally. No wheezes , rales, or rhonchi. GASTROINTESTINAL: Abdomen soft, non-tender, nondistended. Normal active bowel sounds MUSCULOSKELETAL: Extremities without clubbing, cyanosis, or edema. NEURO: Alert & Oriented x4 to person, place, time, situation. Moves all ext x4 Results Labs CBC & Chem 7: 10/16/18 10:00 10/16/18 10:00 Imaging Imaging: Impressions Head MRI 10/16/18 00:00 CONCLUSION: 1. No acute infarct, acute hemorrhage, midline shift or extra-axial fluid collections. 2. 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 Negative CTA Carotid. The right internal carotid artery and to a lesser extent the left internal carotid artery demonstrate a retropharyngeal course. Head CT 10/16/18 09:47 CONCLUSION: 1. Concern for acute thrombus identified within the left middle cerebral artery. . Head CTA 10/16/18 09:47 CONCLUSION: 1. No significant stenosis, occlusion or aneurysm. 2. Patent right posterior communicating artery. . Head MRA 10/16/18 13:00 CONCLUSION: 1. Negative MRA of the [place]. The left M1 segment is widely patent with intact flow. Cervical Spine MRI 10/16/18 13:12 CONCLUSION: 1. Uncovertebral joint hypertrophy on the left side at C3-4 and disc osteophyte complex on the left side at C6-7 cause asymmetric narrowing of the neural foramina at these levels. Probable impingement on the ventral nerve roots at both levels. 2. No signal abnormalities in the marrow of the cervical vertebral bodies. Assessment and Plan (1) TIA (transient ischemic attack): Code(s): G45.9 - Transient cerebral ischemic attack, unspecified Status: Acute (2) HTN (hypertension): Code(s): I10 - Essential (primary) hypertension Status: Chronic (3) Headache: Code(s): R51 - Headache Status: Acute Plan 83-year-old female presents to the emergency room acute onset of headache with left arm numbness and decreased handgrip with associated blurry vision TIA versus cephalgiaPlavix have been initiated by neurology. Patient in the past has not tolerated full dose aspirin due to spitting up blood but was able to tolerate the baby aspirin.. 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 2D echo results pending Appreciate neurology recommendation and temporal arteritis needs to be ruled out , ESR not elevated at 8 and CRP 1.00, IV steroids was initiated by neurology. Continue close neurological checks which is remained stable Consult OT and PT Diabetes mellitus type 2 -ADA diet, sliding scale insulin, hold metformin, hemoglobin A1c currently pending Hypertension history, hold antihypertensives for permissive blood pressure until CVA is ruled out. Hyperlipidemia -LDL at 72 with good HDL at 64, will discontinue statin DVT prophylaxisheparin Discharge Planning: Likely home in the morning if patient remains stable Progress Note: Quality VTE Deep Vein Thrombosis/Pulmonary Embolism Present on Admission: No _ (1) HTN (hypertension) Qualifiers: Hypertension type: (2) Headache Qualifiers: Headache type: Headache chronicity pattern: Intractability:
[2018-10-17] MEDS: amLODIPine 5 MG Tablet PO SCH (12:16)
--- NOTE | 2018-10-17 13:34 | ECHRPT ---
Indication: afib and flutter CONCLUSIONS Normal left ventricular size. Mild concentric left ventricular hypertrophy. The left ventricular systolic function is normal with an estimated ejection fraction in the range of 55-60%. [id number] mitral valve regurgitation. Moderate tricuspid regurgitation. The estimated pulmonary arterial pressure is 41 mmHg. There is estimated mild pulmonary hypertension present (range 40-50 mmHg). BP: / HR: Rhythm: MEASUREMENTS (Male / Female) Normal Values Technical Quality: 2D ECHO LV Diastolic Diameter PLAX 3.5 cm 4.2 - 5.9 / 3.9 - 5.3 cm LV Systolic Diameter PLAX 2.8 cm IVS Diastolic Thickness 1.4 cm 0.6 - 1.0 / 0.6 - 0.9 cm LVPW Diastolic Thickness 1.3 cm 0.6 - 1.0 / 0.6 - 0.9 cm LV Relative Wall Thickness 0.8 RV Internal Dim ED PLAX 2.4 cm LVOT Diameter 1.7 cm Aortic Root Diameter 2.9 cm LV Ejection Fraction MOD BP 55.7 % >= 55 % LV Ejection Fraction MOD 4C 66.3 % LV Ejection Fraction 4C AL 68.6 % LV Ejection Fraction MOD 2C 52.9 % LV Ejection Fraction 2C AL 53.0 % M-MODE Aortic Root Diameter MM 3.2 cm LA Systolic Diameter MM 4.6 cm LA Ao Ratio MM 1.4 AV Cusp Separation MM 1.8 cm DOPPLER AV Peak Velocity 161.0 cm/s AV Peak Gradient 10.4 mmHg LVOT Peak Velocity 116.0 cm/s LVOT Peak Gradient 5.4 mmHg AV Area Cont Eq pk 1.6 cm Mitral E Point Velocity 88.4 cm/s Mitral A Point Velocity 117.0 cm/s Mitral E to A Ratio 0.8 LV E' Lateral Velocity 9.7 cm/s Mitral E to LV E' Lateral Ratio 9.2 LV E' Septal Velocity 8.6 cm/s Mitral E to LV E' Septal Ratio 10.3 TR Peak Velocity 278.0 cm/s TR Peak Gradient 30.9 mmHg Right Atrial Pressure 10.0 mmHg Pulmonary Artery Systolic Pressu 40.9 mmHg Right Ventricular Systolic Press 40.9 mmHg PV Peak Velocity 97.7 cm/s PV Peak Gradient 3.8 mmHg FINDINGS LEFT VENTRICLE Normal left ventricular size. Mild concentric left ventricular hypertrophy. The left ventricular systolic function is normal with an estimated ejection fraction in the range of 55-60%. RIGHT VENTRICLE Normal right ventricular size and systolic function. LEFT ATRIUM The left atrial size is normal. RIGHT ATRIUM The right atrial size is normal. ATRIAL SEPTUM Normal atrial septal thickness without atrial level shunting by limited color doppler interrogation. AORTA The aortic root and proximal ascending aorta are normal in size on limited imaging. MITRAL VALVE [id number] mitral valve regurgitation. AORTIC VALVE Trileaflet aortic valve. No aortic valve stenosis or regurgitation. TRICUSPID VALVE The estimated pulmonary arterial pressure is 41 mmHg. There is estimated mild pulmonary hypertension present (range 40-50 mmHg). Moderate tricuspid regurgitation. PULMONARY VALVE No pulmonary valve regurgitation or stenosis. VESSELS The inferior vena cava is normal in size. PERICARDIUM No pericardial effusion. Anamaria Luciano MD, FACC (Electronically Signed) Final Date:17 October 2018 13:33
[2018-10-17 14:27] LABS: Hemoglobin A1c 6.2 % (4.3-6.0)
[2018-10-17 18:27] LABS: Hemoglobin A1c 6.2 % (4.3-6.0)
--- NOTE | 2018-10-18 07:47 | P.PNNEU ---
Subjective Subjective Comments: No cp, no dyspnea, no fraga, no focal weakness, no vision loss feels well wants ready go home Active Medications: Active Medications Amlodipine Besylate (Norvasc) 5 mg PO DAILY [facility] Last Admin: 10/17/18 12:16 Dose: 5 mg Aspirin (Ecotrin) 162 mg PO DAILY [facility] Last Admin: 10/17/18 11:18 Dose: 162 mg Buspirone HCl (Buspar) 7.5 mg PO BID [facility] Last Admin: 10/17/18 21:31 Dose: 7.5 mg Cholestyramine Resin (Questran Light 4 Gm Pkt) 2 gm PO BID [facility] Last Admin: 10/17/18 21:27 Dose: 2 gm Clopidogrel Bisulfate (Plavix) 75 mg PO DAILY [facility] Last Admin: 10/17/18 08:00 Dose: 75 mg Dextrose (D50w Vial) 50 ml IV.PUSH UNSCH PRN PRN Reason: PER HYPOGLYCEMIA PROTOCOL Famotidine (Pepcid) 20 mg PO DAILY [facility] Last Admin: 10/17/18 08:00 Dose: 20 mg Glucagon (Glucagon Inj) 1 mg OTHER UNSCH PRN PRN Reason: for Hypoglycemia Protocol Heparin Sodium (Porcine) (Heparin Inj) 5,000 units SQ Q12HR [facility] Last Admin: 10/17/18 21:31 Dose: 5,000 units Hydrochlorothiazide (Microzide) 12.5 mg PO DAILY [facility] Last Admin: 10/17/18 08:00 Dose: 12.5 mg Insulin Aspart (Novolog Insulin Correctional Sugar Inj) 0 unit SQ ACHS [facility]; Protocol Last Admin: 10/17/18 21:30 Dose: 1 unit Miscellaneous (Pill Splitter) 1 each OTHER UNSCH PRN PRN Reason: PILL SPLITTER Pantoprazole Sodium (Protonix) 20 mg PO DAILY [facility] Last Admin: 10/17/18 08:00 Dose: 20 mg Prednisone (Deltasone) 30 mg PO DAILY [facility] Stop: 10/23/18 23:59 Sodium Chloride (Ns Flush) 2 ml IV.FLUSH BID [facility] Last Admin: 10/17/18 21:32 Dose: 2 ml Sodium Chloride (Ns Flush) 2 ml IV.FLUSH PRN PRN PRN Reason: FLUSH AFTER USING IV ACCESS Allergies/Adverse Reactions: Allergies Allergy/AdvReac Type Severity Reaction Status Date / Time aspirin Allergy Severe UNCOATED Unverified 07/13/17 14:53 enalaprilat Allergy Severe GLOSSAL Unverified 07/13/17 14:53 SWELLING, DYSPNEA Review of Systems All other systems reviewed negative except as stated in HPI Physical Exam Vital signs: Vital Signs 10/17/18 08:00 10/17/18 12:00 10/17/18 16:00 Temperature 98.1 F 97.8 F 97.8 F Pulse Rate 107 H 80 95 H Respiratory Rate 20 20 20 Blood Pressure 132/79 137/90 149/76 H Pulse Oximetry 97 96 98 10/17/18 17:18 10/17/18 20:00 10/18/18 00:00 Temperature 97.8 F 97.7 F Pulse Rate 91 H 82 Respiratory Rate 18 20 Blood Pressure 143/80 H 141/76 H Pulse Oximetry 98 96 95 10/18/18 04:00 10/18/18 06:47 Temperature 97.8 F Pulse Rate 72 Respiratory Rate 20 12 Blood Pressure 128/62 Pulse Oximetry 99 Intake & Output 10/17/18 10/18/18 10/18/18 18:59 06:59 18:59 Intake Total 590 / 590 Balance 590 / 590 Intake: IV 350 / 350 NS Inj 1,000 ML @ 70 mls/hr IV. 350 / 350 CONT .[id number] [facility] Rx#:[id number] Oral 240 / 240 Other: # Voids 5 # Bowel Movements 1 Narrative: GENERAL: in NAD, sitting up in chair looks well SKIN: Warm and dry. HEAD: Atraumatic. Normocephalic. EYES: Pupils equal and round. No scleral icterus. ENT: No nasal bleeding or discharge. NECK: Trachea midline. No JVD. CARDIOVASCULAR: Regular rate and rhythm. RESPIRATORY: No accessory muscle use. MUSCULOSKELETAL: No obvious deformities. NEUROLOGICAL: Awake and alert. Sitting up eating breakfast looks comfortable, no aphasia, fluent articulate, ox 3, articulate, follows, no tenderness neck supple visual resendiz full no facial asymmetry no focal weakness gait not assessed secondary to fall risk PSYCHIATRIC: Appropriate mood and affect; insight and judgment normal. 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 Possibility of TIA versus mild inflammatory state cta's negative r/o gca- check esr/crp; ESR normal CRP minimally elevated MRI brain negative for acute stroke MRA brain patent vasculature MRI C-spine spondylosis cord normal recs Neuro stable. No headache Possibility of TIA and Plavix; discontinue aspirin 6-12 weeks prednisone times 1 week Discharge planning from neurologic standpoint follow-up in the outpatient setting as needed Behavioral modification and risk factor reduction. Weight loss, blood pressure control, blood sugar control, lipid control. Exercise
[2018-10-18] MEDS: Insulin NovoLOG Aspart Correctional Sugar Inj SQ SCH (07:57)
[2018-10-18] MEDS: Famotidine 20 MG Tablet PO SCH (08:01)
[2018-10-18] MEDS: Pantoprazole Sodium 20 MG DR Tablet PO SCH (08:01)
[2018-10-18] MEDS: amLODIPine 5 MG Tablet PO SCH (08:01)
[2018-10-18] MEDS: Heparin - SQ 10,000 UNITS/ML Vial SQ SCH (08:01)
[2018-10-18] MEDS: Cholestyramine Light 4 GM Packet PO SCH (08:02)
[2018-10-18] MEDS ORDERED: predniSONE 20 MG Tablet PO SCH (09:00)
--- NOTE | 2018-10-18 11:55 | P.DS ---
DS: Providers Date of admission: 10/16/18 13:12 Primary care physician: Adama Stauffer MD Consults: 10/16/18 12:56 Consult to Neurology Stat Consulting Provider: Mariano Collado For STAT consult, spoke directly to:: trudi Blanton [employer]:: Mariano Collado Reason for Consultation: stroke alert Notified:: Physician Spoke with:: ADD TO LIST Date Notified:: 10/16/18 Time Notified:: 13:14 Ordering Provider: URSULA 10/16/18 13:13 Consult to Neurology Routine Consulting Provider: Mariano Collado Reason for Consultation: Ischemic Stroke Comments:: DUPLICATE CONSULT REQUEST Ordering Provider: LUISANA Consult to Rehab Medicine Routine Consulting Provider: Broderick Parmar Reason for Consultation: Stroke patient, assist with Rehab recommendations Notified:: Service Spoke with:: TONIA Date Notified:: 10/16/18 Time Notified:: 13:31 Ordering Provider: LUISANA 10/17/18 13:48 HUB Only Consult Order Routine Consulting Provider: Ximena Bueno Anticipated date of discharge: 10/18/18 Brief History from admission: 83-year-old female with a history of diabetes mellitus type 2, hypertension, hyperlipidemia who stented to the emergency room due to sudden onset of severe left-sided headache radiating down towards the posterior part of her head neck and down to her left arm. This is associated with some blurred vision with no associated photo sensitivity. She is also noticed some left arm numbness along with decrease in left hand abstractor. Of note, she started having some generalized weakness yesterday with associated dizziness that affected her gait. When she developed sudden onset of headache, she came into the emergency room further evaluation. She denies a history of stroke or TIAs in the past. She denies any associated trouble swallowing or any difficulty with her speech. She denies any associated chest pain, palpitations, nor any shortness of breath. DS: Diagnosis Discharge Diagnosis (1) TIA (transient ischemic attack): Status: Acute Diagnosis: Principal (2) HTN (hypertension): Status: Chronic Diagnosis: Secondary (3) Headache: Status: Resolved Diagnosis: Secondary DS: Summary 83-year-old female presents to the emergency room with acute on that of headache with left arm numbness and decreased handgrip was found to have TIA due to no acute findings on the MRI of the brain. Patient was started on Plavix in addition to her baby aspirin 81 mg that she takes at home. 2D echo showed normal LV function with mild ventricular hypertrophy. Neurology service , Dr. Gregroy was consulted and recommended initially dose of steroids to rule out temporal arteritis, her ESR is not elevated at 8 and her CRP was 1.0, he recommended to continue oral dose of prednisone 30 mg p.o. daily for 5 more days. Her fasting lipid profile showed LDL at 72 with good HDL at 64 therefore statin was not started during hospitalization. Patient was counseled on continued aggressive control of her blood sugars for her diabetes mellitus type 2, hypertension, exercise and weight loss. At this time, patient has gained maximum benefit from hospitalization is ready to be transitioned to home. Time Spent with Patient Total time spent providing and/or coordinating discharge services: Less than 30 minutes Quality: VTE Deep Vein Thrombosis/Pulmonary Embolism Present on Admission: No Exam Narrative Exam Narrative: GENERAL: This is a well-nourished, well-developed patient, in no apparent distress. CARDIOVASCULAR: Regular rate and rhythm without murmurs, gallops, or rubs. RESPIRATORY: Clear to auscultation. Breath sounds equal bilaterally. No wheezes , rales, or rhonchi. GASTROINTESTINAL: Abdomen soft, non-tender, nondistended. Normal active bowel sounds MUSCULOSKELETAL: Extremities without clubbing, cyanosis, or edema. NEURO: Alert & Oriented x4 to person, place, time, situation. Moves all ext x4 Results Labs on day of discharge: Labs from last 24 hours 10/18/18 10/17/18 10/17/18 07:10 20:57 15:59 POC Glucose 93 152 H 154 H Hemoglobin A1c 10/17/18 10/16/18 05:03 10:00 POC Glucose Hemoglobin A1c 6.2 H 6.2 H Impressions ITS Impressions Head MRI 10/16/18 00:00 CONCLUSION: 1. No acute infarct, acute hemorrhage, midline shift or extra-axial fluid collections. 2. 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 Negative CTA Carotid. The right internal carotid artery and to a lesser extent the left internal carotid artery demonstrate a retropharyngeal course. Head CT 10/16/18 09:47 CONCLUSION: 1. Concern for acute thrombus identified within the left middle cerebral artery. . Head CTA 10/16/18 09:47 CONCLUSION: 1. No significant stenosis, occlusion or aneurysm. 2. Patent right posterior communicating artery. . Head MRA 10/16/18 13:00 CONCLUSION: 1. Negative MRA of the [place]. The left M1 segment is widely patent with intact flow. Cervical Spine MRI 10/16/18 13:12 CONCLUSION: 1. Uncovertebral joint hypertrophy on the left side at C3-4 and disc osteophyte complex on the left side at C6-7 cause asymmetric narrowing of the neural foramina at these levels. Probable impingement on the ventral nerve roots at both levels. 2. No signal abnormalities in the marrow of the cervical vertebral bodies. Discharge Plan Discharge Disposition Patient Disposition: 01 Discharge Home Discharge Condition Condition: Good Discharge Order Discharge Orders: Discharge Order (Routine); Ordered 10/18/18 Ordered By: Cortney Robledo Discharge Details Anticipated Discharge Date: 10/18/18 Physicians Team Primary Care Provider: Adama Stauffer Attending Provider: Cortney Robledo Other Providers: Mariano Collado ; Broderick Parmar ; HumanXimena luis Rxs /Orders / Referrals /Forms Prescriptions: New clopidogrel [Plavix] 75 mg Tablet 75 mg PO DAILY Qty: 30 RF: 0 prednisone 20 mg Tablet 30 mg PO DAILY Qty: 5 RF: 0 Continue losartan 50 mg Tablet 50 mg PO DAILY RF: 0 metformin 500 mg Tablet 250 mg PO BID RF: 0 amlodipine 5 mg Tablet 5 mg PO DAILY RF: 0 buspirone 7.5 mg Tablet 7.5 mg PO BID RF: 0 omeprazole 20 mg Capsule,Delayed Release(Dr/Ec) 20 mg PO DAILY RF: 0 ranitidine HCl 150 mg Capsule 150 mg PO DAILY RF: 0 hydrochlorothiazide 12.5 mg Tablet 12.5 mg PO DAILY RF: 0 cholestyramine-aspartame [Cholestyramine Light] 4 gram Powder 2 g PO BID RF: 0 aspirin [Aspir-81] 81 mg Tablet,Delayed Release (Dr/Ec) 81 mg PO DAILY Qty: 0 RF: 0 Referrals: Adama Stauffer MD [Primary Care Provider] - See Instructions ( Please call the physician's office to book the appointment to be seen within [1 week].) Discharge Instructions Patient Printed Instructions: Prednisone (By mouth), Clopidogrel (By mouth), Stroke (DC) Post Discharge Care Plan Care Plan Goals: Your Health Problems: TIA Goals to Promote Your Health: * To prevent worsening of your condition * To maintain your health at the optimal level Directions to Meet Your Goals: * Take your medications as prescribed * Follow your dietary instruction * Follow activity as directed * Keep your appointments as scheduled * Take your immunizations and boosters as scheduled * If your symptoms worsen call your PCP * If no PCP go to Urgent Care or Emergency Room Smoking is dangerous to your health. Avoid second hand smoke. You may reach the 24-hour crisis hotline for domestic abuse at . Status ED Status: Left Department
== END 2018-10-18 11:59 | disposition home or self-care (01) ==
LOC: NEPE 09:19 → NEDA 13:12 → N05 16:42
PROVIDERS: ADMIT Family Medicine; ATTEND Family Medicine
DX: Z79.82 Long term (current) use of aspirin; E78.5 Hyperlipidemia, unspecified; Z68.41 Body mass index [BMI] 40.0-44.9, adult; E11.9 Type 2 diabetes mellitus without complications; G45.9 Transient cerebral ischemic attack, unspecified; Z79.84 Long term (current) use of oral hypoglycemic drugs; E66.01 Morbid (severe) obesity due to excess calories; M25.78 Osteophyte, vertebrae; Z90.2 Acquired absence of lung [part of]; Z90.710 Acquired absence of both cervix and uterus; H53.8 Other visual disturbances; R51 Headache; I11.9 Hypertensive heart disease without heart failure; Z87.891 Personal history of nicotine dependence; D3A.00 Benign carcinoid tumor of unspecified site